=== PATIENT | female | born 1985 | race African-American/Black ===

== ENCOUNTER 2024-06-06 20:40 | Emergency (ER) | payer OTHER, SELFPAY ==
[2024-06-06 21:02] VITALS: BP 144/100; PULSE 91; RESP 14; TEMP 36.6; O2SAT 100
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
[2024-06-06 23:20] VITALS: BP 146/99; PULSE 78; RESP 16; O2SAT 98
== END 2024-06-06 23:21 | disposition home or self-care (01) ==
LOC: ANHED 23:03
PROVIDERS: Emergency Provider Physician Assistant
DX: S13.4XXA Sprain of ligaments of cervical spine, initial encounter (principal); V44.5XXA Car driver injured in collision with heavy transport vehicle or bus in traffic accident, initial encounter
CPT/HCPCS: 99283